=== PATIENT | female | born 1975 | race Caucasian/White ===

== ENCOUNTER 2017-10-12 06:42 | Day surgery (SDC) | payer MEDICAID ==
[~2017-10-12] VITALS: Ht 175.3 cm; Wt 104.3 kg
[~2017-10-12 06:42] MED LIST: AMITRIPTYLINE H50 M1 PO; BENICAR; COLACE 100100 MG/CAP PO; CYMBALTA 60MG60 MG PO; DEPAKOTE500 MG PO; DEXILANT60 MG PO; FLEXERIL5 MG PO; IBU800 M1 PO; NORVASC 10MG10 MG PO; PERCOCET 325 MG1 TAB PO; PRILOSEC 20MG20 MG PO; PRINIVIL10 MG PO; PROAIR HFA0.09 MG/AC IH; THE MEDICINE S200 M2 PO; TOPROL XL 50MG50 MG PO; TOPROL XL100 MG PO
[2017-10-12 07:06] VITALS: PULSE 83; TEMP 98.2
[2017-10-12 08:15] VITALS: BP 123/73; PULSE 76
[2017-10-12 08:26] VITALS: BP 136/84; PULSE 78; TEMP 97.7
[2017-10-12 08:30] VITALS: BP 124/76; PULSE 78
[2017-10-12 08:45] VITALS: BP 136/86; PULSE 79
== END 2017-10-12 08:55 | disposition home or self-care (01) ==
LOC: SDCO 06:42
DX: K21.9 Gastro-esophageal reflux disease without esophagitis (principal); K29.30 Chronic superficial gastritis without bleeding; I10 Essential (primary) hypertension; R19.5 Other fecal abnormalities; M81.0 Age-related osteoporosis without current pathological fracture; K64.8 Other hemorrhoids; Z80.0 Family history of malignant neoplasm of digestive organs; Z87.11 Personal history of peptic ulcer disease; Z90.49 Acquired absence of other specified parts of digestive tract
CPT/HCPCS: J2250; J2405; J3010; J7030

== ENCOUNTER → 2018-05-23 | Outpatient (CLI) | payer MEDICAID | LOC: ZCOL.LAB 17:25 | DX: H92.11 Otorrhea, right ear (principal) ==

== ENCOUNTER → 2018-06-21 | Outpatient (CLI) | payer MEDICAID | LOC: COL.RAD 14:07 | DX: R10.2 Pelvic and perineal pain (principal); Z90.710 Acquired absence of both cervix and uterus; Z90.721 Acquired absence of ovaries, unilateral ==

== ENCOUNTER → 2018-08-30 | Outpatient (CLI) | payer MEDICAID | LOC: COL.RAD 12:02 | DX: G40.909 Epilepsy, unspecified, not intractable, without status epilepticus (principal); J34.89 Other specified disorders of nose and nasal sinuses; G51.4 Facial myokymia; M54.5 Low back pain; G89.29 Other chronic pain; Z98.890 Other specified postprocedural states | CPT/HCPCS: A9585 ==

== ENCOUNTER → 2018-09-20 | Outpatient (CLI) | payer MEDICAID | LOC: COL.CARD 09:20 | DX: G40.909 Epilepsy, unspecified, not intractable, without status epilepticus (principal); G51.4 Facial myokymia; G89.29 Other chronic pain; M54.5 Low back pain ==

== ENCOUNTER 2019-02-06 13:30 | Outpatient (RCR) | payer MEDICAID ==
[~2019-02-06 13:30] MED LIST changes: +CELEXA 20MG20 MG/TAB PO; +CYMBALTA 20MG20 MG PO; +ELIQUIS 5MG PO; +LIPITOR 40MG TA40 MG PO; +PRIL40 PO; +PRINIVIL40 MG PO; +ZANAFLEX 4MG TAB4 MG PO
== END 2019-02-11 14:03 | disposition home or self-care (01) ==
LOC: WSPT 13:30
DX: M47.816 Spondylosis without myelopathy or radiculopathy, lumbar region (principal); Z98.890 Other specified postprocedural states

== ENCOUNTER 2019-03-21 15:15 | Outpatient (RCR) | payer MEDICAID | END 2019-05-13 | disposition home or self-care (01) | LOC: WSPT | DX: M47.816 Spondylosis without myelopathy or radiculopathy, lumbar region (principal); M43.16 Spondylolisthesis, lumbar region; Z98.890 Other specified postprocedural states ==

== ENCOUNTER 2020-02-11 13:02 | Day surgery (SDC) | payer MEDICARE, MEDICAID ==
[~2020-02-11] VITALS: Ht 175.5 cm; Wt 108.0 kg
[2020-02-11] VITALS (10 sets, daily range): BP systolic 120–156; BP diastolic 67–98; PULSE 66–75; TEMP 98.2
[2020-02-11] MEDS ORDERED: COLACE 100100 MG/CAP PO (13:57)
[2020-02-11 13:59] LABS: HEMOGLOBIN 11.9 g/dl (12.5-16.0); MEAN CELL VOLUME 79 fl (80.0-100.0); MEAN CORPUSCULAR HEMOGLOBIN 27 pg (27.0-31.0); MEAN CORPUSCULAR HGB CONC 34 g/dl (33.0-37.0); MEAN PLATELET VOLUME 9.7 fl (7.4-10.4); PLATELET COUNT 246 K/mm3 (130-400); RED BLOOD COUNT 4.43 M/mm3 (4.10-5.30); REDCELL DISTRIBUTION WIDTH-CV 13.7 % (11.5-14.5)
[2020-02-11 14:01] LABS: HEMATOCRIT 35.1 % (37.0-47.0)
[2020-02-11 14:02] LABS: INR 1.1 (0.8-3.0); PROTHROMBIN TIME 11.9 SECONDS (9.7-12.8)
[2020-02-11 14:06] LABS: CALCIUM 8.9 mg/dL (8.4-10.2); CREATININE, serum 1.09 (0.52-1.25); POTASSIUM 4.2 mmol/L (3.4-5.0)
[2020-02-11] MEDS ORDERED: ASPIRIN E.C. 8181 MG PO (14:07)
--- NOTE | 2020-02-11 14:22 | NUR ---
SEE MERGE FOR ALL MEDICATION ADMINISTRATION TIMES, INTRA AND POST SEDATION ASSESSMENTS
--- NOTE | 2020-02-11 14:29 | NUR ---
Report from Jaswant.
--- NOTE | 2020-02-11 14:37 | NUR ---
Report from Henrik Gómez.
[2020-02-11] MEDS ORDERED: IMDUR 30MG30 MG/TAB PO (15:10)
--- NOTE | 2020-02-11 15:16 | NUR ---
Report Henrik Chacko.Will await pts arrival.
--- NOTE | 2020-02-11 15:24 | NUR ---
Pt returned from procedure at this time.Report from Henrik Benavides.
--- NOTE | 2020-02-11 17:11 | NUR ---
Report to Henrik Roy.
--- NOTE | 2020-02-11 17:48 | NUR ---
Right tband released of all air and dressing applied over site. INT discontinued intact.
--- NOTE | 2020-02-11 18:01 | NUR ---
Discharge instructions given. Transferred to private car by keshav
== END 2020-02-11 18:01 | disposition home or self-care (01) ==
LOC: COL.CAR 13:02
PROVIDERS: Internal Medicine Cardiovascular Disease
DX: I25.10 Atherosclerotic heart disease of native coronary artery without angina pectoris (principal); I48.0 Paroxysmal atrial fibrillation; E78.5 Hyperlipidemia, unspecified; R94.39 Abnormal result of other cardiovascular function study; E66.9 Obesity, unspecified; G43.909 Migraine, unspecified, not intractable, without status migrainosus; I11.0 Hypertensive heart disease with heart failure; I50.32 Chronic diastolic (congestive) heart failure; Z79.01 Long term (current) use of anticoagulants; Z88.8 Allergy status to other drugs, medicaments and biological substances
CPT/HCPCS: J1644; J2250; J3010; J7030; Q9967

== ENCOUNTER → 2021-01-24 | Outpatient (CLI) | payer MEDICARE, MEDICAID ==
[~2021-01-24] MED LIST changes: +ASPIRIN E.C. 8181 MG PO; +IMDUR 30MG30 MG/TAB PO
== END ==
LOC: ZCOL.LAB 12:13
DX: I11.0 Hypertensive heart disease with heart failure (principal); I50.32 Chronic diastolic (congestive) heart failure

== ENCOUNTER 2023-05-17 21:35 | Emergency (ER) | payer MEDICARE, MEDICAID ==
[~2023-05-17] VITALS: Ht 175.3 cm; Wt 100.0 kg
[~2023-05-17 21:35] MED LIST changes: +IMDUR 60MG60 MG/TAB PO; +KEPPRA 500MG500 MG PO; +NORVASC2.5 MG PO; +PEPCID40 MG PO; +PERCOCET 325 MG1 TA3 PO; +ZOFRAN ODT4 MG PO
[2023-05-17] MEDS ORDERED: Ketorolac 30 MG/ML VIAL IV ONE (22:00)
[2023-05-17] MEDS ORDERED: NS 1,000 ML IV ONE (22:00)
[2023-05-17 22:13] LABS: BASO % 0.3 % (0.0-2.0); EOS % 0.4 % (0.0-4.0); GRAN # 4.7 K/mm3 (1.4-6.5); GRAN % 64.7 % (42.2-75.2); HEMATOCRIT 37.1 % (37.0-47.0); LYMPH # 1.8 K/mm3 (1.2-3.4); LYMPH % 25.2 % (20.0-51.0); MEAN CELL VOLUME 81 fl (80.0-100.0); MEAN CORPUSCULAR HEMOGLOBIN 26 pg (27-31); MEAN CORPUSCULAR HGB CONC 32 g/dl (33.0-37.0); MEAN PLATELET VOLUME 9.5 fl (7.4-10.4); MONO # 0.7 K/mm3 (0.1-0.6); MONO % 8.9 % (1.7-9.3); PLATELET COUNT 484 K/mm3 (130-400); RED BLOOD COUNT 4.57 M/mm3 (4.10-5.30); REDCELL DISTRIBUTION WIDTH-CV 14.8 % (11.5-14.5)
[2023-05-17 22:26] LABS: COLLECTION METHOD CLEAN CATCH
[2023-05-17 22:34] LABS: URINE APPEARANCE CLOUDY (CLEAR/HAZY); URINE BLOOD NEGATIVE (NEGATIVE); URINE COLOR Dark Yellow (YELLOW); URINE GLUCOSE NEGATIVE (NEGATIVE); URINE KETONE NEGATIVE (NEGATIVE); URINE NITRATE NEGATIVE (NEGATIVE); URINE PROTEIN(semi-quant) TRACE (NEGATIVE)
[2023-05-17 22:36] LABS: ALBUMIN 2.5 gm/dL (3.5-5.0); BILIRUBIN,TOTAL 0.4 mg/dL (0.2-1.2); CREATININE, serum 0.68 mg/dL (0.57-1.11); POTASSIUM 4.6 mmol/L (3.5-4.5); TOTAL PROTEIN 7.2 gm/dL (6.2-8.1)
[2023-05-17 22:47] LABS: SQUAMOUS EPITHELIAL 20-50 /hpf (0-10); URINE WBC 20-50 /hpf (0-2)
[2023-05-17 22:48] LABS: URINE BACTERIA MANY /hpf (NONE SEEN); URINE CALCIUM OXALATE CRYSTAL PRESENT (NOT PRESENT)
[2023-05-17] MEDS ORDERED: TORADOL 10MG TA10 MG PO (23:37)
[2023-05-17] MEDS ORDERED: ZOFRAN 4MG T4 MG/TAB PO (23:37)
[2023-05-17 23:51] VITALS: BP 107/62; PULSE 95; TEMP 98.4
[2023-05-18] MEDS ORDERED: SEPTRA SUS200/5-40/5 PEG (00:24)
[2023-05-18] MEDS ORDERED: Sulfamethoxazole/Trimethoprim 800-160 MG TAB PO ONE (00:30)
== END 2023-05-18 01:27 | disposition home or self-care (01) ==
LOC: COL.ER 21:35
PROVIDERS: Emergency Medicine
DX: U07.1 COVID-19 (principal); N39.0 Urinary tract infection, site not specified; R05.9 Cough, unspecified; L90.5 Scar conditions and fibrosis of skin; Z96.653 Presence of artificial knee joint, bilateral; Z88.1 Allergy status to other antibiotic agents
CPT/HCPCS: J1885; J7030

== ENCOUNTER 2023-08-20 09:54 | Inpatient (IN) | payer MEDICARE, MEDICAID ==
[~2023-08-20] VITALS: Ht 175.3 cm; Wt 67.2 kg
[~2023-08-20 09:54] MED LIST changes: -KEPPRA 500MG500 MG PO; +KEPPRA SUSP100 MG/ML PEG; +SEPTRA SUS200/5-40/5 PEG; +TORADOL 10MG TA10 MG PO; +ZOFRAN 4MG T4 MG/TAB PO
[2023-08-20 10:48] LABS: BASO % 0.4 % (0.0-2.0); EOS % 0.1 % (0.0-4.0); GRAN # 6.3 K/mm3 (1.4-6.5); GRAN % 74.8 % (42.2-75.2); HEMOGLOBIN 12.7 g/dl (12.5-16.0); LYMPH # 1.5 K/mm3 (1.2-3.4); LYMPH % 17.2 % (20.0-51.0); MEAN CELL VOLUME 79 fl (80.0-100.0); MEAN CORPUSCULAR HEMOGLOBIN 26 pg (27-31); MEAN CORPUSCULAR HGB CONC 33 g/dl (33.0-37.0); MEAN PLATELET VOLUME 11.1 fl (7.4-10.4); MONO # 0.6 K/mm3 (0.1-0.6); MONO % 7.3 % (1.7-9.3); PLATELET COUNT 397 K/mm3 (130-400); RED BLOOD COUNT 4.91 M/mm3 (4.10-5.30)
[2023-08-20] MEDS ORDERED: HYDROmorphone 0.5 MG/0.5 ML SYRINGE IV ONE ×2 (11:00→13:45)
[2023-08-20 11:14] LABS: ALBUMIN 3.5 g/dL (3.5-5.0); BILIRUBIN,TOTAL 0.5 mg/dL (0.2-1.2); CALCIUM 9.6 mg/dL (8.4-10.2); CREATININE, serum 0.59 mg/dL (0.57-1.11); POTASSIUM 3.3 mEq/L (3.5-4.5); TOTAL PROTEIN 6.5 g/dl (6.2-8.1)
[2023-08-20] MEDS ORDERED: FENTANYL 100MCG TD (13:12)
[2023-08-20 13:22] LABS: COLLECTION METHOD CLEAN CATCH
[2023-08-20 13:32] LABS: PH 6.5 (5.0-8.5); URINE APPEARANCE CLOUDY (CLEAR/HAZY); URINE BLOOD TRACE (NEGATIVE); URINE COLOR YELLOW (YELLOW); URINE GLUCOSE NEGATIVE (NEGATIVE); URINE KETONE 3+ (NEGATIVE); URINE NITRATE POSITIVE (NEGATIVE); URINE PROTEIN(semi-quant) TRACE (NEGATIVE)
[2023-08-20] MEDS ORDERED: Iohexol 300 - 100 ML VIAL IV ONE (13:38)
[2023-08-20] MEDS ORDERED: NS 100 ML IV SCH (13:39)
[2023-08-20 14:03] LABS: URINE CALCIUM OXALATE CRYSTAL PRESENT (NOT PRESENT)
[2023-08-20 14:04] LABS: URINE BACTERIA MANY /hpf (NONE SEEN)
[2023-08-20] MEDS ORDERED: cefTRIAXone 1 G in Water For Injection,Sterile 10 ML IV ONE (14:15)
[2023-08-20] MEDS ORDERED: NS 1,000 ML IV ONE (14:15)
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
[2023-08-20] MEDS ORDERED: HALDOL ORAL 22 MG/ML PEG (14:45)
[2023-08-20] MEDS ORDERED: ROXANOL 20MG20 MG/ML PO (14:47)
[2023-08-20] MEDS ORDERED: CELEXA10 MG PEG (14:50)
[2023-08-20] MEDS ORDERED: ULTRAM 50MG TAB50 MG PO (15:08)
[2023-08-20] MEDS ORDERED: PERCOCET 325 MG1 TA3 PEG (15:12)
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
[2023-08-20] MEDS ORDERED: Citalopram 20 MG TAB PO SCH (16:13)
[2023-08-20] MEDS ORDERED: levETIRAcetam Oral Soln 500 MG/5 ML UD PO SCH ×3 (16:13→21:00)
[2023-08-20] MEDS ORDERED: traMADol 50 MG TAB PO SCH ×2 (16:15→16:30)
[2023-08-20] MEDS ORDERED: Morphine Oral Concentrate 20 MG/ML UD PO PRN ×2 (16:15→16:30)
[2023-08-20] MEDS ORDERED: FENTANYL 100 MCG TD SCH ×2 (16:15→16:30)
[2023-08-20] MEDS ORDERED: oxyCODONE/Acetaminophen 7.5-325 MG TAB PO PRN (16:15)
--- NOTE | 2023-08-20 16:29 | NUR ---
sex worker or escort confirmed with Officer Linda that patient does not have any other contact names associated in their system. Worker will reach out to the patient's [facility]'s oncology [facility] tomorrow during their work hours. Worker requested that a [facility] mine wedge sawyer contact this oncology social worker as soon as possible.
--- NOTE | 2023-08-20 16:30 | NUR ---
arrived on unit per stretcher from ED, rolled to side and has 1cm stage II pressure ulcer to left buttock, pictures taken and sent to HIM, patient has rosa but is wet from urine and rosa does not appear to be leaking, patietn hasd scaling to bilateral bottom of feet and red area to righ lateralmalleolus and foam dressing placed, has PEG tube in place and dressing is dirty, area around site with bloody oozing, cleaned and new dressing placed, patient states she does not get tube feedings but that she eats, she is alert and oriented but states and questions she asks are not oriented, asking about her daughtermore than once and she was told her daughter is not here, has trach that also is soiled, fingers to bilateral hands are retracted, has foot booties on bilateral feet, patietn is dirty and attempted to give hygiene care,
[2023-08-20] MEDS ORDERED: NS 1,000 ML IV SCH (17:30)
[2023-08-20] MEDS ORDERED: *Potassium Replacement Protocol MC SCH ×2 (17:30→19:15)
--- NOTE | 2023-08-20 18:00 | NUR ---
Dr Ruiz was in to see patient, IV fluids started and fentanyl patch placed, full assessment completed, see physical assessment intervention for further info, patient is resting quietly in bed, she does call out and cry out in pain when rolled to side, c/o pain to shoulders and back
[2023-08-20 18:56] VITALS: BP 134/86; PULSE 85; TEMP 98.6
[2023-08-20] MEDS ORDERED: Potassium Chloride 100 ML IV SCH (19:15)
--- NOTE | 2023-08-20 19:43 | NUR ---
PATIENT RESTING IN BED WITH TV OFF WITH NO FAMILY PRESENT WITH NO ACUTE DISTRESS NOTED. PATIENT ON ROOM AIR. POTASSIUM INFUSING INTO RIGHT HAND. PATIENT C/O PAIN. INFUSION STOPED. PUMP PROGRAMED TO RUN WITH NS WITH POTASSIUM RIDER INFUSING AT SAME TIME. PATIENT TOLERATING WELL. TRAC CAPPED. PEG TUBE INTACT, PATIENT, AND CLAMPED. SMITH CATH INTACT, PATENT, AND DRAINING CLEAR YELLOW URINE. ASSESSMENT COMPLETED AT THIS TIME. PATIENT DENIES ANY NEEDS. BED IN LOW POSITION WITH WHEELS LOCKED WITH RAILS UP X3 AND CALL LIGHT WITHIN REACH. BED ALARM ON.
[2023-08-20 22:00] VITALS: BP_SYST 134
--- NOTE | 2023-08-20 22:00 | NUR ---
PATIENT RESTING IN BED WITH TV OFF WITH NO FAMILY PRESENT WITH NO ACUTE DISTRESS NOTED. PATIENT ON ROOM AIR. TRAC CAPED. NS INFUSING INTO RIGHT HAND WITH NO COMPLICATIONS NOTED. PEG TUBE CLAMPED, PATENT, AND INTACT. SMITH CATH INTACT, PATIENT, AND DRAINING CLEAR YELLOW URINE. PATIENT C/O BACK PAIN WITH A PAIN LEVEL OF 10/10. PO ROXANOL GIVEN PER MD ORDER. MEDICATION ADMINISTRATION COMPLETED AT THIS TIME. PAITENT TOLERATED WELL. ALL NEEDS MET. BED IN LOW POSITION WITH WHEELS LOCKED WITH RAILS UP X3 AND CALL LIGHT WITHIN REACH. BED ALARM ON.
[2023-08-20 23:55] VITALS: BP 128/83; PULSE 93; TEMP 98.3
[2023-08-21] VITALS (12 sets, daily range): BP systolic 123–149; BP diastolic 84–93; PULSE 96–111; TEMP 97.5–98.1
[2023-08-21 06:32] LABS: BASO % 0.5 % (0.0-2.0); EOS # 0.1 K/mm3 (0.0-0.7); EOS % 0.9 % (0.0-4.0); GRAN # 3.4 K/mm3 (1.4-6.5); HEMATOCRIT 37.6 % (37.0-47.0); HEMOGLOBIN 11.9 g/dl (12.5-16.0); LYMPH # 1.6 K/mm3 (1.2-3.4); LYMPH % 29.4 % (20.0-51.0); MEAN CELL VOLUME 81 fl (80.0-100.0); MEAN CORPUSCULAR HEMOGLOBIN 26 pg (27-31); MEAN CORPUSCULAR HGB CONC 32 g/dl (33.0-37.0); MEAN PLATELET VOLUME 10.3 fl (7.4-10.4); MONO # 0.4 K/mm3 (0.1-0.6); RED BLOOD COUNT 4.67 M/mm3 (4.10-5.30); REDCELL DISTRIBUTION WIDTH-CV 15.5 % (11.5-14.5)
[2023-08-21 06:38] LABS: PLATELET COUNT 285 K/mm3 (130-400)
[2023-08-21 06:57] LABS: CALCIUM 9.3 mg/dL (8.4-10.2); CREATININE, serum 0.55 mg/dL (0.57-1.11); MAGNESIUM 1.3 mg/dL (1.6-2.6); PHOSPHOROUS 3.2 mg/dL (2.3-4.7); POTASSIUM 3.7 mEq/L (3.5-4.5)
[2023-08-21] MEDS ORDERED: cefTRIAXone 1 G in Water For Injection,Sterile 10 ML IV SCH (09:00)
--- NOTE | 2023-08-21 09:51 | NUR ---
Initial visit; Patient has a number of health issues and states she would like prayer. Warehouse Trainer talked with Yelena asking few questions, just letting her talk. Yelena is very sweet and well spoken. Warehouse Trainer offered prayer for healing for Yelena and wished her well.
--- NOTE | 2023-08-21 10:12 | NUR ---
humidifier maintenance worker collaborated with Valerie Hamm, Livestock Producer and confirmed that we are to utilize son, Damien Lundberg as stated durable power of engineer automated equipment for health care. Worker confirmed with [facility] police department, that patient's care has been assigned to a bill recapitulation clerk. Police advise that Adult Protective Services shall be the decision maker on Damien's appropriateness to remain durable power of engineer automated equipment. Worker left detailed message for Amy (BARTOLOME) call Mary as soon as possible regarding this matter.
[2023-08-21] MEDS ORDERED: PANTOPRAZOLE 40 MG PEG SCH (11:30)
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
[2023-08-21] MEDS ORDERED: Dextrose (Glucose) 15 GM (4 x 3.75 GM) Chewable TABLET PACK PO PRN (13:00)
[2023-08-21] MEDS ORDERED: Dextrose 50% Water 25 GM/50 ML SYRINGE IV PRN (13:00)
[2023-08-21] MEDS ORDERED: Glucagon 1 MG VIAL IM PRN (13:00)
--- NOTE | 2023-08-21 15:09 | NUR ---
Patient alert and oriented to self and situation only. Follows verbal commands. Limited mobility, contractures noted to right hand and leg. Patient appeared to have areas of crust all over skin. Bed bath provided with washcloths and soap/water. Patient had significant areas of dirt that appeared to be caked onto skin. Nails to hands and feet yellow tinged and length long. Feet had thick layer of yellow scaly/flaky skin. Red area noted to right side of neck, open area to coccyx noted and draining light red fluid. Open area noted to right heel. Dark area noted to top of left foot, appears to be old open area. Heels floated with pillow and boots. Patient repositioned Q2 hr. Trach dressing CDI. Patient's PEG tube patent, tolerating medications well. Fentanyl patch noted to patient's upper right back/shoulder area. Wound care, ST, and procedure manager consulted. SW and hospitalist updated on patient assessment. Call light within reach.
--- NOTE | 2023-08-21 16:09 | NUR ---
Social work student faxed referrals to [facility], [facility], [facility], [facility], [facility], [facility], [facility], [facility], and [facility]. Katerina, [facility], and [facility] are unable to accept.
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
[2023-08-21] MEDS ORDERED: Insulin Lispro (HumaLOG) SQ SCH (18:00)
--- NOTE | 2023-08-21 18:15 | NUR ---
Patient tolerated first tube feeding well. Denies nausea and abdominal discomfort. Large loose bowel movement noted. Linens changed and libby care provided. Soft touch call light within reach.
[2023-08-21] MEDS ORDERED: Magnesium Sulfate 8% 50 ML IV ONE (19:30)
--- NOTE | 2023-08-21 20:05 | NUR ---
VERBAL CONVERSATION WITH DR. Huy ANDREA ABOUT PATIENT MAGNESIUM LAB OF 1.3. ORDER RECIEVED FOR 4 GRAM OF MAG IV TIMES ONE.
--- NOTE | 2023-08-21 20:57 | NUR ---
DR. Nate ANDREA CALLED FOR POSITIVE BLOOD CULTURE OF STAPH EPI. TELEPHONE ORDER RECIEVED FOR MONODOX 100 MG PO BID TIMES 10 DAYS THROUGH PEG TUBE.
[2023-08-21] MEDS ORDERED: Doxycycline Monohydrate 100 MG CAP PO SCH (21:00)
--- NOTE | 2023-08-21 21:20 | NUR ---
PATIENT RESTING IN BED WITH EYES CLOSED WITH TV ON WITH NO FAMILY PRESENT WITH NO ACUTE DISTRESS NOTED. PATIENT ON ROOM AIR. NS INFUSING INTO RIGHT HAND WITH NO COMPLICATIONS NOTED. TRACH INTACT AND CAPED. TEG TUBE INTACT, PATENT, AND CLAMPED. SMITH CATH INTACT, PATENT, AND DRAINING CLEAR YELLOW URINE. HEEL BOOT PROTECTORS ON. URINE SPECIMEN OBTAINED FROM LUIS FOR MD ORDER. MEDICATION ADMINISTRATION COMPLETED AT THIS TIME. PATIENT TOLERATED WELL. PATIENT DENIES ANY NEEDS AT THIS TIME. BED IN LOW POSITION WITH WHEELS LOCKED WITH RAILS UP X3 AND CALL LIGHT WITHIN REACH. BED ALARM ON.
[2023-08-22] VITALS (12 sets, daily range): BP systolic 121–136; BP diastolic 78–94; PULSE 80–101; TEMP 97.5–98.3
[2023-08-22 06:23] LABS: BASO % 0.5 % (0.0-2.0); EOS # 0.1 K/mm3 (0.0-0.7); EOS % 1.4 % (0.0-4.0); GRAN # 3.8 K/mm3 (1.4-6.5); GRAN % 66.4 % (42.2-75.2); HEMOGLOBIN 11.4 g/dl (12.5-16.0); LYMPH # 1.3 K/mm3 (1.2-3.4); LYMPH % 22.4 % (20.0-51.0); MEAN CELL VOLUME 81 fl (80.0-100.0); MEAN CORPUSCULAR HEMOGLOBIN 26 pg (27-31); MEAN CORPUSCULAR HGB CONC 32 g/dl (33.0-37.0); MEAN PLATELET VOLUME 10.4 fl (7.4-10.4); MONO # 0.5 K/mm3 (0.1-0.6); PLATELET COUNT 234 K/mm3 (130-400); RED BLOOD COUNT 4.42 M/mm3 (4.10-5.30); REDCELL DISTRIBUTION WIDTH-CV 15.3 % (11.5-14.5)
[2023-08-22 06:26] LABS: HEMATOCRIT 35.6 % (37.0-47.0)
[2023-08-22 06:42] LABS: ALBUMIN 2.9 g/dL (3.5-5.0); CALCIUM 9.2 mg/dL (8.4-10.2); CREATININE, serum 0.5 mg/dL (0.57-1.11); PHOSPHOROUS 2.9 mg/dL (2.3-4.7); POTASSIUM 3.7 mEq/L (3.5-4.5)
[2023-08-22] MEDS ORDERED: Potassium Bicarbonate/Citrate 20 MEQ Effervescent TAB PO SCH (08:00)
--- NOTE | 2023-08-22 10:06 | NUR ---
Initial visit; Patient thanked Video Producer for stopping by today although she was focused upon needing a nurse. Video Producer located her nurse for her and wished her well.
--- NOTE | 2023-08-22 13:57 | NUR ---
drop board worker spoke with BARTOLOME Salgado who reports there has been no progression with police assignment of a lamp replacer. CEDRIC was instructed to call DPOA Damien and see if he was agreeable to prison placement for pt as he is admitted at [facility] in [place]. CEDRIC left a voicemail for Damien Lundberg. CEDRIC was provided ex-girlfriend, Eileen's number as [phone] to assist with contacting Damien. She put SW, her, and son on a three way call. Son was agreeable to this phone call with Eileen on the line. CEDRIC advised pt will need a clear discharge plan and he is DPOA-HC. Damien and Eileen report that he will be in the hospital for awhile, has to wait a week for his next surgery, then he will be going to a psych unit once recovered. Damien tells this SW "can I just give DPOA to my brother Collins." CEDRIC states she is unsure of this and the legality as there is no alternate on the DPOA and pt is unable to designate anyone else. Damien verbalized understanding of this issue. CEDRIC advised she will speak with the legal team to determine the next steps as he is unable to be DPOA-HC in the near future. Damien and Eileen report they are agreeable to pt going to a prison. Eileen reports interested in [facility] and [facility]. CEDRIC advised pt is high medical complexity and the trach is a barrier for local facilities to accept her. CEDRIC advised they would have to expand the radius likely. CEDRIC informed son that pt has a financial liability associated with going to a prison and all of her income, except $60 will go to the prison. Eileen states, "That's fine, that makes sense." CEDRIC stated she will send referrals to other prison and keep them updated. CEDRIC spoke with son, Collins [phone] to provide an update. CEDRIC advised they are moving forward with guardianship and the hospital lmft will reach out to ensure he is a willing and appropriate guardian. Collins was agreeable and willing to be her guardian. He confirms that Damien will be in the hospital for awhile and cannot fulfill DPOA role. Collins states he would be interested in obtaining pt's records to get a better understanding of her needs and what is going on. CEDRIC advised Damien is the only DPOA who could request these from health records. Collins understood this. He continues to promote interest in getting pt to [place] in a prison. CEDRIC advised he look into areas there that would be able to accept her from a prison in [place]. Collins confirmed understanding of all information, but just does not want [facility]. CEDRIC advised she would note this. CEDRIC receieved all completed guardianship papers and emailed them to [employer]. He confirmed speaking with son, Collins Kearns and advocated for him to be the guardian in the proposed report. CEDRIC notes [facility], [facility], [facility], and [facility] declined. CEDRIC faxed additional referrals to [facility], [facility], [facility], and [facility]. CEDRIC spoke with [facility] who are interested in pt and would like to visit her tomorrow, they questioned trach being removed. CEDRIC spoke with [facility] who is interested in pt and would like to visit tomorrow. CEDRIC spoke with Brigida at [facility] who reports they cannot accept pt with a trach, but could follow if it is removed. CEDRIC faxed referral to Bethany [facility] [place], [facility], and [facility] for review today. CEDRIC spoke with CEDRIC Mitchell at [facility] to request status on records request. She does not know the status on this. She confirmed pt is seen by Iam Rushing and he was following for hospice orders previously. CEDRIC spoke with health records who faxed these to this SW. CEDRIC provided records from 2022-February 2023 to [facility]. CEDRIC placed a copy of these in the chart, along with guardianship documents and DPOA-HC. CEDRIC spoke with Director Mitali Horan regarding trach being a barrier. She spoke with Mosaic Tiler who suggested the removal of this and discussing with DPOA, Damien. AQUILES Zavala confirms trach is capped and not being used. CEDRIC spoke with son and Eileen on another three-way call to discuss this barrier and above denials from nursing homes. Damien was agreeable to trach removal. CEDRIC spoke with Damien's RN Devin at [facility] who confirms pt is of "sound mind" at this time. Damien then spoke with hospital RN Lucas and Pat to provide consent of this. CEDRIC advised this was a barrier for placement and he verbalized understanding of the issue for placement. CEDRIC advised two facilities were interested in patient. CEDRIC informed Dr. Ruiz of the need to remove trach, if able. He put in an ENT consult to do so. CEDRIC informed RN Lucas of this in process. CEDRIC notes pt's records from [facility] in [facility] attempted contact with daughter, Wily Tan. CEDRIC notes [facility]. CEDRIC spoke with [facility] who provided Wily' number as [phone] [place] [address]. CEDRIC provided this to lmft Jigar Wetzel to submit in petition. Discharge Plan: pending guardianship, [facility] & [facility] visit tomorrow
--- NOTE | 2023-08-22 15:07 | NUR ---
nephrology social worker called [facility] and left a vm regarding referral. CEDRIC spoke with [facility] who states they receieved pt's old records and can visit her tomorrow at 1030a. They are requesting a CARE Assessment to be completed. CEDRIC spoke with Antonio at [facility] who reports to have a lot of questions about pt's diagnosis and cares provided by hospice. She will be reaching out to Calvin to get more information on her hospice related cares and dx. She will reach out later today or tomorrow morning. Discharge Plan: guardianship pending, 10:30am [facility], then [facility] visit
--- NOTE | 2023-08-22 22:00 | NUR ---
PATIENT RESTING WITH HOB ELEVATED TO 25 DEGREES WITH TV ON WITH NO FAMILY PRESENT WITH NO ACUTE DISTRESS NOTED. PATIENT HOB ELEVATED TO 35 DEGREES. PATIENT ON ROOM AIR. TRACH INTACT AND CAPED. INT TO RIGHT HAND INTACT WITH NO COMPLICATIONS NOTED. SMITH CATH INTACT, PATENT, AND DRAINING CLEAR YELLOW URINE. PEG TUBE INTACT, PATENT, AND CLAMPED. ASSESSMENT AND MEDICATION ADMINISTRATION COMPLETED AT THIS TIME. PATIENT TOLERATED WELL. ALL NEEDS MET. BED IN LOW POSITION WITH WHEELS LOCKED WITH RAILS UP X3 AND CALL LIGHT WITHIN REACH. BED ALARM ON.
[2023-08-23] VITALS (10 sets, daily range): BP systolic 113–129; BP diastolic 82–85; PULSE 84–117; TEMP 98–98.4
[2023-08-23 07:04] LABS: BASO % 0.7 % (0.0-2.0); EOS # 0.1 K/mm3 (0.0-0.7); EOS % 1.3 % (0.0-4.0); GRAN # 4.3 K/mm3 (1.4-6.5); GRAN % 70.1 % (42.2-75.2); HEMOGLOBIN 10.6 g/dl (12.5-16.0); LYMPH # 1.2 K/mm3 (1.2-3.4); LYMPH % 19.5 % (20.0-51.0); MEAN CELL VOLUME 81 fl (80.0-100.0); MEAN CORPUSCULAR HEMOGLOBIN 26 pg (27-31); MEAN CORPUSCULAR HGB CONC 33 g/dl (33.0-37.0); MEAN PLATELET VOLUME 11.1 fl (7.4-10.4); MONO # 0.5 K/mm3 (0.1-0.6); MONO % 8.2 % (1.7-9.3); PLATELET COUNT 243 K/mm3 (130-400); RED BLOOD COUNT 4.01 M/mm3 (4.10-5.30); REDCELL DISTRIBUTION WIDTH-CV 15.6 % (11.5-14.5)
[2023-08-23 07:25] LABS: HEMATOCRIT 32.6 % (37.0-47.0)
[2023-08-23 07:32] LABS: ALBUMIN 2.5 g/dL (3.5-5.0); CALCIUM 8.9 mg/dL (8.4-10.2); CREATININE, serum 0.48 mg/dL (0.57-1.11); MAGNESIUM 1.5 mg/dL (1.6-2.6); PHOSPHOROUS 2.6 mg/dL (2.3-4.7)
[2023-08-23] MEDS ORDERED: Petrolatum, White Ointment 1 Each Tube TP PRN (08:45)
--- NOTE | 2023-08-23 16:09 | NUR ---
slab worker was informed [facility] and [facility] visited with pt. Both are interested in pt. They will requested tube feed orders, CARE assessment, and last update about guardianship. CEDRIC advised pt still has a trach and ENT consult pending and will keep them updated. CEDRIC faxed updates to both facilities. CEDRIC spoke with [facility], Antonio who is still reviewing. She is attempting to obtain records of the hospice dx from [facility] with no success. CEDRIC has not receieved anything from [place] to send to [facility]. CEDRIC informed Antonio of this. CEDRIC advised [facility] might not be the best option as son wants to transition her to [place]. Antonio verbalized understanding of this. CEDRIC notes ENT consult is still pending re: trach. CEDRIC was informed by Massage Coordinator Jigar Wetzel who confirmed son, Collins has been appointed temporary guardian. CEDRIC spoke with Collins and provided update on above. CEDRIC advised of the two potential accepting facilties. He was agreeable to this and CEDRIC stated the only barrier is the ENT consult to determine removal for it and this could open up other long-term options. CEDRIC mentioned previous conversation with ex-girlfriend, Eileen of [facility] who wanted to visit them. CEDRIC expressed this takes time and draws out the process. Collins verbalized understanding and will research the two places online to choose. CEDRIC advised he has some time to decide right now, but once she is cleared to discharge, ticket writer will need a facility choice. He understood and was agreeable to trach removal as it was never supposed to be "permanent." CEDRIC faxed updates to [facility] as well, they will review if there is no trach. CEDRIC provided update to interior design professor Millie as RN was not available. Discharge Plan: long-term
[2023-08-23] MEDS ORDERED: fentaNYL Patch Removal/Drugbuster TD SCH (16:30)
[2023-08-24] VITALS (7 sets, daily range): BP systolic 107–113; BP diastolic 71–76; PULSE 93–115; TEMP 98.1–98.5
--- NOTE | 2023-08-24 01:54 | NUR ---
PT ALERT TO SELF AND PLACE, NOT A VERY GOOD HISTORIAN, VERY PLEASANT WOMAN WHO APPEARS OLDER THAN AGE. 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 LEFT SIDED FACIAL DROOP. ENT DOCTOR IN AT SHIFT CHANGE TO D/C TRACH. COVERED BY DRESSING, DR ADVISED TO CHANGE NECESSARY AND THAT THE TAPE MAY NEED ENFORCEMENT NORMAL WEAR AND TEAR LOOSENS IT. SHIFT ASSESSMENT COMPLETE AND MEDICATED PER ORDERS. PAIN RATED 3/10 AT THIS TIME, FENTANYL PATCH IN PLACE, INDWEELING CATHERTER PATENT, DRAINING CLEAR YELLOW. TUBE FEED AND CAYETANO GIVEN PER FEEDING SCHEDULE. NO DIARRHEA NOTED ON THIS SHIFT. PT IS ON ROOM AIR AND IS TOLERATING ALL INTERVENTIONS WELL. MEPILEX TO SACRAL AREA CDI. CALL LIGHT WITHIN REACH, BED IN LOWEST POSITION AND FALL PRECAUTIONS IN PLACE.
[2023-08-24 07:00] LABS: BASO % 0.5 % (0.0-2.0); EOS # 0.1 K/mm3 (0.0-0.7); EOS % 1.6 % (0.0-4.0); GRAN # 3.3 K/mm3 (1.4-6.5); GRAN % 59.2 % (42.2-75.2); HEMOGLOBIN 11.7 g/dl (12.5-16.0); LYMPH # 1.6 K/mm3 (1.2-3.4); LYMPH % 28.8 % (20.0-51.0); MEAN CELL VOLUME 81 fl (80.0-100.0); MEAN CORPUSCULAR HEMOGLOBIN 27 pg (27-31); MEAN CORPUSCULAR HGB CONC 33 g/dl (33.0-37.0); MEAN PLATELET VOLUME 10.8 fl (7.4-10.4); MONO # 0.5 K/mm3 (0.1-0.6); MONO % 9.7 % (1.7-9.3); PLATELET COUNT 153 K/mm3 (130-400); RED BLOOD COUNT 4.42 M/mm3 (4.10-5.30); REDCELL DISTRIBUTION WIDTH-CV 15.6 % (11.5-14.5)
[2023-08-24 07:03] LABS: ALBUMIN 2.8 g/dL (3.5-5.0); CALCIUM 9.1 mg/dL (8.4-10.2); CREATININE, serum 0.51 mg/dL (0.57-1.11); HEMATOCRIT 35.9 % (37.0-47.0); MAGNESIUM 1.6 mg/dL (1.6-2.6); PHOSPHOROUS 2.6 mg/dL (2.3-4.7); POTASSIUM 4.7 mEq/L (3.5-4.5)
[2023-08-24] MEDS ORDERED: Acetaminophen Oral Susp 325 MG/10.15 ML UD PO PRN (09:15)
[2023-08-24] MEDS ORDERED: Magnesium Sulfate 1 GM/100 ML IV Soln IV SCH (10:00)
--- NOTE | 2023-08-24 11:09 | NUR ---
PATIENT RESTING IN BED UPON ENTERING ROOM. MORNING MEDICATIONS ADMINISTERED PER eMAR. PATIENT REPORTING 4/10 PAIN. SMITH DRAINING CLEAR YELLOW URINE. PATIENT CONTINUES TO HAVE LOOSE STOOLS, COMPLETED BED CHANGE PROVIDED, MONIKA AND CATHETER CARE COMPLETED. MEPILEX PLACED TO STAGE 2 PRESSURE SORE ON BOTTOM. PATIENT REPOSITIONED IN BED. OLD TRACH INSERTION SITE DRESSING EXCHANGED. MORNING TUBE FEEDING COMPLETED WITH NO ISSUES. CALL BUTTON PLACE WITHIN REACH, BED ALARMS IN PLACE. WILL CONTINUE TO MONITOR.
[2023-08-24] MEDS ORDERED: DOXYCYCLINE 10100 MG PO (13:12)
[2023-08-24] MEDS ORDERED: KEPPRA SUSP100 MG/ML PO (13:13)
[2023-08-24] MEDS ORDERED: PERCOCET 325 MG1 TA3 PEG (13:15)
--- NOTE | 2023-08-24 13:34 | NUR ---
vegetable farmworker was informed by [facility] that they cannot accept pt. CEDRIC spoke with Anur[facility] as the trach was removed to inquire about review of pt. They do not have any beds. CEDRIC later spoke with Breonna at [facility] who can accept pt today. CEDRIC Robertson faxed updates at this time. Breonna requested PT/OT/ST, nursing, and wound care orders for pt to be evaluated. She also requests feeding supplies as their [employer] order will not arrive until Sunday. CEDRIC informed Graphotype Operator Cinthya who was willing to provide feeding items to [facility]. CEDRIC informed AQUILES Hitchcock and Dr. Ruiz of discharge today. CEDRIC informed son, Collins about discharge plan. CEDRIC completed IM from Medicare over the phone. He verbalized understandindg. Original in chart and copy in the room. CEDRIC obtained verbal consent for EMS transfer due to pt's ailments and he was agreeable. CEDRIC was later informed by [facility] that pt has [facility] Medicare Advantage plan and they cannot accept pt as this requires prior-auth. CEDRIC informed Director Mitali of this as pt has been in the hospital for many days. CEDRIC informed and RN. CEDRIC left a voicemail to son advising of the insurance issue and reporting likely discharge of Sunday. CEDRIC faxed [facility] authorization in. CEDRIC also informed Utilization Review CM Jaymie who emailed R1. CEDRIC Robertson completed CARE Assessment. CEDRIC emailed this to Collins to sign and intial in required areas before submitting. CEDRIC receieved a call from Breonna at [facility] reporting they submitted for prior-auth, but they will go ahead and accept pt if CEDRIC can arrange transportation. CEDRIC advised she submitted for auth as well. Breonna reports if they do not recieve it, she will bill pt under her Medicaid. CEDRIC spoke with Graphotype Operator, AQUILES Hitchcock, and Dr. Ruiz who were all agreeable to discharge today. CEDRIC informed son of the change as well and to check his email for requested signature. No further concerns. CEDRIC spoke with [facility] who can transport pt at 2pm. CEDRIC completed documents and provided to Dr. Ruiz to sign. CEDRIC informed [facility] of transport time. CEDRIC was informed pt needs to meet with attorney lawyer Sunday at 10:30am via Zoom. CEDRIC called Breonna at [facility] and informed her of this for the guardianship hearing. CEDRIC forwarded zoom link with details and documents. CEDRIC informed APS Amy via email of discharge to [facility] today. CEDRIC faxed discharge orders to [facility]. Discharge Plan: 2pm EMS to [facility]
[2023-08-24] MEDS ORDERED: ELIQUIS 5MG PO (13:52)
--- NOTE | 2023-08-24 14:37 | NUR ---
REPORT CALLED TO AQUILES SMITH AT [facility], ALL QUESTIONS ANSWERED. IV AND SMITH CATHETER REMOVED PER ORDERS. PATIENT ESCORTED OFF OF UNIT BY EMS STAFF.
[2023-08-24] MEDS ORDERED: Heparin 5,000 UNITS/ML 1 ML VIAL SQ SCH (16:00)
== END 2023-08-24 14:42 | DRG 689 ==
LOC: COL.ER 09:54 → MEDICAL 14:11
PROVIDERS: Physician Assistant; ADMIT Internal Medicine
DX: N39.0 Urinary tract infection, site not specified (principal); L89.153 Pressure ulcer of sacral region, stage 3; L89.323 Pressure ulcer of left buttock, stage 3; I69.352 Hemiplegia and hemiparesis following cerebral infarction affecting left dominant side; F05 Delirium due to known physiological condition; I69.351 Hemiplegia and hemiparesis following cerebral infarction affecting right dominant side; M79.7 Fibromyalgia; G40.909 Epilepsy, unspecified, not intractable, without status epilepticus; I10 Essential (primary) hypertension; M54.9 Dorsalgia, unspecified; F03.90 Unspecified dementia, unspecified severity, without behavioral disturbance, psychotic disturbance, mood disturbance, and anxiety; G89.29 Other chronic pain; G47.30 Sleep apnea, unspecified; Z96.653 Presence of artificial knee joint, bilateral; K21.9 Gastro-esophageal reflux disease without esophagitis; F32.A Depression, unspecified; R62.7 Adult failure to thrive; R53.81 Other malaise; M19.90 Unspecified osteoarthritis, unspecified site; Z90.710 Acquired absence of both cervix and uterus; Z79.899 Other long term (current) drug therapy; Z88.1 Allergy status to other antibiotic agents; Z88.5 Allergy status to narcotic agent; Z88.8 Allergy status to other drugs, medicaments and biological substances; Z93.0 Tracheostomy status; Z86.718 Personal history of other venous thrombosis and embolism; Z23 Encounter for immunization; Z68.25 Body mass index [BMI] 25.0-25.9, adult
CPT/HCPCS: A4314; J0696; J1170; J3475; J3480; J7030; Q3014; Q9967